=== PATIENT | female | born 1945 | race Two or more races ===

== ENCOUNTER 2023-10-02 18:26 | Emergency (ER) | payer OTHER ==
[2023-10-02 18:40] VITALS: RESP 19; TEMP 97.8; BMI 29.2
[2023-10-02] MEDS ORDERED: ASPIRIN 81 MG CHEWABLE TABLETS PO ONE (19:19)
[2023-10-02] MEDS ORDERED: TICAGRELOR 90 MG TABLET PO SCH (19:30)
[2023-10-02] MEDS ORDERED: ASPIRIN 81 MG CHEWABLE TABLETS ONE (19:30)
[2023-10-02] MEDS ORDERED: TICAGRELOR 90 MG TABLET PO ONE (19:30)
[2023-10-02 19:55] LABS: BASO % 0.2 % (0-2.0); HEMATOCRIT 41.4 % (32.4-45.2); LYMPH % 7.6 % (8-40); MCH 30.4 pg (25.7-33.7); MCHC 33.8 g/dl (32.0-36.0); MEAN CELL VOLUME 89.8 fl (80-96); MEAN PLT VOLUME 6.6 fl (7.5-11.1); MONO % 7.2 % (3.8-10.2); PLATELET COUNT 401 10^3/uL (134-434); RBC 4.61 M/mm3 (3.60-5.2); RDW 13.7 % (11.6-15.6); WHITE BLOOD COUNT 21.9 K/mm3 (4.0-10.0)
[2023-10-02 19:57] VITALS: BP 102/68; PULSE 108
[2023-10-02 20:02] LABS: INR 1.36 (0.83-1.09); PROTHROMBIN TIME (PATIENT) 15.7 SEC (9.7-13.0)
[2023-10-02 20:05] LABS: ACTIVATED PTT 27.5 SECONDS (25.2-36.5)
[2023-10-02 20:06] LABS: POTASSIUM 4.1 mmol/L (3.5-5.1)
[2023-10-02 20:09] LABS: ALBUMIN 3.5 g/dl (3.4-5.0); BLOOD UREA NITROGEN 28.9 mg/dL (7-18); CALCIUM 9.6 mg/dL (8.5-10.1)
[2023-10-02 20:11] LABS: CREATININE 1.6 mg/dL (0.55-1.3)
[2023-10-02 20:13] LABS: BILIRUBIN,TOTAL 1.2 mg/dL (0.2-1)
[2023-10-02 20:44] LABS: ANISOCYTOSIS 1+; MACROCYTOSIS 1+
[2023-10-03] MEDS ORDERED: TICAGRELOR 90 MG TABLET PO SCH (10:00)
== END 2023-10-02 19:59 | disposition short-term general hospital (02) ==
LOC: JER 18:26
DX: R07.89 Other chest pain (principal); R06.02 Shortness of breath; R63.8 Other symptoms and signs concerning food and fluid intake; R10.13 Epigastric pain; R00.0 Tachycardia, unspecified; I21.3 ST elevation (STEMI) myocardial infarction of unspecified site; U07.1 COVID-19
CPT/HCPCS: 0241U-QW; 36415; 80053; 83690; 83735; 84484; 85025; 85610; 85730; 86850; 86900; 86901; 93005; 93010; 99285-25